=== PATIENT | female | born 1965 | race Caucasian/White ===

== ENCOUNTER 2021-06-24 15:04 | Emergency (ER) | payer MEDICAID ==
[~2021-06-24] VITALS: Ht 157.5 cm; Wt 59.0 kg
[2021-06-24 15:10] VITALS: BP 115/74
--- NOTE | 2021-06-24 15:15 | NUR ---
PT W/C ASSISTED TO BED
[2021-06-24] MEDS ORDERED: KETOROLAC 30 MG/ML VIAL IM ONE (15:45)
[2021-06-24] MEDS ORDERED: TRAM50TA1 PO (15:51)
[2021-06-24] MEDS ORDERED: NAPR-54 PO (15:52)
[2021-06-24] MEDS ORDERED: HYDROcodone/APAP 5/325 MG 1 TAB TAB PO ONE (16:05)
[2021-06-24] MEDS ORDERED: ACET-9800 PO (16:18)
[2021-06-24] MEDS ORDERED: ACETAMINOPHEN EXTRA STRENGTH 500 MG TAB PO ONE (16:25)
--- NOTE | 2021-06-24 16:44 | NUR ---
Patient discharged with v/s stable. Written and verbal after care instructions given and explained. Patient alert, oriented and verbalized understanding of instructions. Ambulatory with steady gait. All questions addressed prior to discharge. ID band removed. Patient advised to follow up with PMD. Rx of ACETAMINOPHEN given. Opportunity to ask questions provided and answered.
== END 2021-06-24 16:44 | disposition home or self-care (01) ==
LOC: MED 15:04
DX: M54.41 Lumbago with sciatica, right side (principal); Z79.899 Other long term (current) drug therapy
CPT/HCPCS: 99282; J1885